=== PATIENT | male | born 1995 | race Caucasian/White ===

== ENCOUNTER 2024-06-13 21:54 | Emergency (ER) | payer SELFPAY ==
[2024-06-13 21:55] VITALS: BP 119/73; PULSE 58; RESP 16; TEMP 36.6; O2SAT 98; BMI 22.9
--- NOTE | 2024-06-13 22:05 | XRR_ITS ---
PROCEDURE INFORMATION: Exam: XR Chest Exam date and time: 06/13/2024 10:07 PM Age: 28 years old Clinical indication: Pain; Chest pressure; Additional info: Chest pain TECHNIQUE: Imaging protocol: Radiologic exam of the chest. Views: 1 view. COMPARISON: No relevant prior studies available. FINDINGS: Lungs: Lungs are clear. Pleural spaces: Unremarkable. No pleural effusion. No pneumothorax. Heart/Mediastinum: Heart is within normal limits of size. Bones/joints: Unremarkable. XR/XR chest 1V portable [id number] IMPRESSION: No acute infiltrate.
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
[2024-06-13 22:10] LABS: Basophils # 0.1 10^3/uL (0.0-0.1); Basophils % 0.8 %; Eosinophils # 0.1 10^3/uL (0.0-0.8); Eosinophils % 0.8 %; Hematocrit 43.3 % (37-53); Lymphocytes # 3.1 10^3/uL (0.8-4.8); Mean Corpuscular HGB Conc 33.9 g/dL (30-55); Mean Corpuscular Hemoglobin 30.5 pg (27-33); Mean Corpuscular Volume 89.8 fl (82-101); Mean Platelet Volume 9.5 fL (7.4-10.4); Monocytes # 0.5 10^3/uL (0.2-0.9); Neutrophils # 3.35 10^3/uL (1.8-7.7); Neutrophils % 47.1 %; Nucleated Red Blood Cells % 0 %; Platelet Count 394 10^3/cmm (157-399); Red Blood Count 4.82 10^6/uL (3.85-5.65); Red Cell Distribution Width 11.3 % (12.1-15.1); White Blood Count 7.13 10^3/uL (3.29-11.43)
[2024-06-13 22:30] LABS: Troponin(5th) Baseline < 6 ng/L (0-15)
[2024-06-13 22:50] VITALS: BP 122/81; PULSE 55; RESP 17; O2SAT 100
[2024-06-13 22:53] LABS: Alanine Aminotransferase 62 U/L (0-41); Alkaline Phosphatase 87 U/L (40-130); Anion Gap 19.3 (5-19); Aspartate Amino Transferase 30 U/L (0-40); Blood Urea Nitrogen 12 mg/dL (6-20); Calcium 9.9 mg/dL (8.5-10.5); Carbon Dioxide 25 mmol/L (22-29); Chloride 101 mmol/L (98-107); Globulin 2.5 g/dL (1.3-4.6); Glomerular Filtration Rate 100.5 mL/min (90-130); Glucose 94 mg/dL (65-115); Osmolality Calculated 292 mOsm/kg (285-295); Potassium 4.3 mmol/L (3.5-5.1); Sodium 141 mmol/L (136-145); Total Bilirubin 0.8 mg/dL (0.15-1.2); Total Protein 7.5 g/dL (6.6-8.7)
--- NOTE | 2024-06-13 22:58 | W.ED.CHESTPA ---
HPI - Chest Pain General: Chief Complaint: Chest Pain Stated Complaint: CP Time Seen by Provider: 06/13/24 22:05 History of Present Illness: Presents to the ER with complaints of chest pain that began 30 minutes approximately 4 he called EMS. Patient said he took some hits of marijuana and developed chest pain shortly after that. Patient received 1 nitro and 3 and 24 mg aspirin on route by the ambulance. Patient is never had this pain before. At time patient arrived in ER with pain she was pain-free. Review of Systems General: Reports: 10 or more systems reviewed and unremarkable except in HPI and below Physical Exam Const: COMMON NORMALS: no acute distress, average body habitus, patient oriented x3, no limitations, healthy appearing, alert and well nourished HENMT: COMMON NORMALS: normocephalic, atraumatic, hearing grossly normal bilaterally, external ears normal, Normal external nose present and moist oral mucous membranes HEAD & SCALP: normocephalic and atraumatic NOSE: Normal external nose present EXTERNAL EAR: Yes external ears normal Neck/C-Spine: COMMON NORMALS: no JVD Chest: COMMONS NORMALS: normal inspection of the chest and normal palpation of entire chest wall Resp: COMMON NORMALS: normal respiratory effort, No retractions, No use of accessory muscles and clear to auscultation bilaterally AUSCULTATION: clear to auscultation bilaterally Cardio: COMMON NORMALS: no JVD, regular rate, regular rhythm, S1 normal heart sound present, S2 normal heart sound present, No gallops present (Cardio), No clicks present (Cardio), No murmurs present (Cardio) and No rub (Cardio) RATE: regular rate RHYTHM: regular rhythm HEART SOUNDS: S1 normal heart sound present and S2 normal heart sound present GI: COMMON NORMALS: Normal to inspection, nondistended, normoactive bowel sounds present, Soft to palpation, non-tender, No hepatosplenomegaly present and no masses PALPATION: Yes Soft to palpation and Yes No hepatosplenomegaly present Neuro: COMMON NORMALS: patient oriented x3 SENSORIUM/ORIENTATION: Yes alert Course Vital Signs: Vital signs: Vital Signs Temperature 97.9 F 06/13/24 21:55 Pulse Rate 55 L 06/13/24 22:50 Respiratory Rate 17 06/13/24 22:50 Blood Pressure 122/81 06/13/24 22:50 Pulse Oximetry 100 06/13/24 22:50 Oxygen Delivery Me thod Room Air 06/13/24 21:55 MDM - Chest Pain Medical Decision Making Patient started having chest pain after he took a hit of marijuana. Patient was worked up in a standard chest pain fashion with labs EKG and chest x-ray. Is very low probability so after 1 lab and EKG which was negative patient was be dismissed from the ER. Differential Diagnosis Unlikely acute massive pulmonary embolism, acute respiratory failure, acute myocardial infarction, cardiac arrest or sudden cardiac Medical Records I reviewed the patient's medical records. Lab Data I reviewed the patient's lab results. 06/13/24 21:42 06/13/24 21:42 Radiology Impressions Chest X-Ray 06/13/24 22:05 IMPRESSION: No acute infiltrate. Laboratory Results WBC 7.13 10^3/uL (3.29-11.43) 06/13/24 21:42 RBC 4.82 10^6/uL (3.85-5.65) 06/13/24 21:42 Hgb 14.70 g/dL (11.27-16.99) 06/13/24 21:42 Hct 43.3 % (37-53) 06/13/24 21:42 MCV 89.8 fl (82-101) 06/13/24 21:42 MCH 30.5 pg (27-33) 06/13/24 21:42 MCHC 33.9 g/dL (30-55) 06/13/24 21:42 RDW 11.3 % (12.1-15.1) L 06/13/24 21:42 Plt Count 394 10^3/cmm (157-399) 06/13/24 21:42 MPV 9.5 fL (7.4-10.4) 06/13/24 21:42 Neut % (Auto) 47.1 % 06/13/24 21:42 Lymph % (Auto) 44.0 % 06/13/24 21:42 Day % (Auto) 7.0 % 06/13/24 21:42 Eos % (Auto) 0.8 % 06/13/24 21:42 Baso % (Auto) 0.8 % 06/13/24 21:42 Neut # (Auto) 3.35 10^3/uL (1.8-7.7) 06/13/24 21:42 Lymph # (Auto) 3.1 10^3/uL (0.8-4.8) 06/13/24 21:42 Day # (Auto) 0.5 10^3/uL (0.2-0.9) 06/13/24 21:42 Eos # (Auto) 0.1 10^3/uL (0.0-0.8) 06/13/24 21:42 Baso # (Auto) 0.1 10^3/uL (0.0-0.1) 06/13/24 21:42 Nucleated RBC % (auto) 0 % 06/13/24 21:42 Nucleated RBCs # 0.0 /100WBC 06/13/24 21:42 Sodium 141 mmol/L (136-145) 06/13/24 21:42 Potassium 4.3 mmol/L (3.5-5.1) 06/13/24 21:42 Chloride 101 mmol/L (98-107) 06/13/24 21:42 Carbon Dioxide 25 mmol/L (22-29) 06/13/24 21:42 Anion Gap 19.3 (5-19) H 06/13/24 21:42 BUN 12 mg/dL (6-20) 06/13/24 21:42 Creatinine 0.9 mg/dL (0.7-1.2) 06/13/24 21:42 GFR Calculation 100.5 mL/min (90-130) 06/13/24 21:42 Glucose 94 mg/dL (65-115) 06/13/24 21:42 Calculated Osmolality 292 mOsm/kg (285-295) 06/13/24 21:42 Calcium 9.9 mg/dL (8.5-10.5) 06/13/24 21:42 Total Bilirubin 0.8 mg/dL (0.15-1.2) 06/13/24 21:42 AST 30 U/L (0-40) 06/13/24 21:42 ALT 62 U/L (0-41) H 06/13/24 21:42 Alkaline Phosphatase 87 U/L (40-130) 06/13/24 21:42 Troponin T Baseline < 6 ng/L (0-15) 06/13/24 21:42 Total Protein 7.5 g/dL (6.6-8.7) 06/13/24 21:42 Albumin 5.0 g/dL (3.5-5.2) 06/13/24 21:42 Globulin 2.5 g/dL (1.3-4.6) 06/13/24 21:42 All radiology interpretation(s) finalized by discharge EKG Data EKG 1: I personally reviewed and interpreted this EKG as follows: EKG interpretation date: 06/13/24 EKG interpretation time: 22:00 Interpretation: Ventricular rate 57 bpm, OH interval 134, QRS duration 86, QTc of 405, sinus bradycardia, Discharge Plan Discharge Patient Disposition: Home Clinical Impression: Atypical chest pain Condition: Stable Discharge Orders: Discharge ED (Routine); Ordered 06/13/24 Ordered By: Burt Rothman Patient Instructions: Chest Pain - Noncardiac Activity Restrictions/Additional Instructions: Your evaluation in ER that included lab work and chest x-ray, and EKG did not reveal any acute coronary cause of your chest pain. Your chest pain is felt to be noncardiac in nature. Please follow-up with your family practitioner in the next 7 days Coding Level of Care Code ED Patient Accounting Representative for Edis Quintana
== END 2024-06-13 23:09 | disposition home or self-care (01) ==
PROVIDERS: Emergency Provider Emergency Medicine
DX: R07.89 Other chest pain (principal)
CPT/HCPCS: 71045; 80053; 84484; 85025; 93005; 99285

== ENCOUNTER 2025-01-13 00:57 | Emergency (ER) | payer SELFPAY ==
[2025-01-13 01:04] VITALS: BMI 21.5
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
== END 2025-01-13 01:23 | disposition home or self-care (01) ==
PROVIDERS: Emergency Provider Emergency Medicine
DX: S01.01XA Laceration without foreign body of scalp, initial encounter (principal); X58.XXXA Exposure to other specified factors, initial encounter
CPT/HCPCS: 12002; 99282